=== PATIENT | female | born 1975 | race Caucasian/White ===

== ENCOUNTER → 2020-09-02 | Outpatient (CLI) | payer BC ==
[~2020-09-02] MED LIST: BUSPAR 10MG10 MG PO; CETIRIZINE HCL10 MG PO; COLACE100 MG PO; EFFEXOR XR150 MG PO; FIBER PO; IBUPROFEN800 MG PO; LISINOPRIL-HCT1 EAC1 PO; MULTI VITAMIN PO; NORETHINDRONE0.35 MG PO; NUVIGIL150 MG PO; PERCOCET 5/325 T1 EA PO; PROPRANOLOL HCL80 MG PO
[2020-09-02 10:19] LABS: HEMOGLOBIN 14.7 gm/dl (12.3-15.3); RED BLOOD COUNT 4.78 M/UL (4.00-5.10); WHITE BLOOD COUNT 9.3 K/UL (4.5-11.0)
[2020-09-02 10:33] LABS: BUN/CREATININE RATIO 28 (0-10)
== END ==
LOC: OPSV2 08:00
PROVIDERS: Obstetrics & Gynecology
DX: Z01.812 Encounter for preprocedural laboratory examination (principal); N93.9 Abnormal uterine and vaginal bleeding, unspecified
CPT/HCPCS: 80053; 81001; 85025

== ENCOUNTER → 2020-09-09 | Day surgery (SDC) | payer BC | END | disposition home or self-care (01) | LOC: OR 08:45 | DX: N84.0 Polyp of corpus uteri (principal); D25.9 Leiomyoma of uterus, unspecified; I10 Essential (primary) hypertension; F41.9 Anxiety disorder, unspecified; G47.419 Narcolepsy without cataplexy; F32.9 Major depressive disorder, single episode, unspecified; E66.01 Morbid (severe) obesity due to excess calories; Z68.39 Body mass index [BMI] 39.0-39.9, adult; Z91.018 Allergy to other foods; Z91.010 Allergy to peanuts; Z79.899 Other long term (current) drug therapy; Z20.822 Contact with and (suspected) exposure to COVID-19 | CPT/HCPCS: 84703; J0690; J1100; J1170; J1885; J2250; J2405; J2704; J3010; J7030; J7120; U0002 ==